=== PATIENT | male | born 1950 | race Caucasian/White ===

== ENCOUNTER 2017-06-26 07:46 | Inpatient (IN) | payer MEDICARE, OTHER ==
[~2017-06-26] VITALS: Ht 170.2 cm; Wt 59.4 kg
[2017-06-26] MEDS ORDERED: HYDROCORTISONE SOD SUCCINATE 100 MG/2 ML VIAL IV ONE (08:15)
[2017-06-26 08:43] LABS: HEMATOCRIT. 25.9 % (42.0-52.0); HEMOGLOBIN. 8.9 g/dL (14.0-18.0); MEAN CORPUSCULAR HEMOGLOBIN 32.9 pg (28.0-32.0); MEAN CORPUSCULAR VOLUME 96.3 fL (80.0-94.0); MEAN PLATELET VOLUME 7.4 fl (7.4-10.4); PLATELET 169 x1000/uL (130-400); PROTHROMBIN TIME 10.6 sec (9.4-11.6); RED BLOOD CELL COUNT 2.69 mill/uL (4.7-6.1); RED CELL DISTRIBUTION WIDTH 15.6 % (11.6-14.6)
[2017-06-26] MEDS ORDERED: FLUDROCORTISONE ACETATE 0.1MG TABLET PO ONE (08:45)
[2017-06-26] MEDS ORDERED: MIDODRINE HCL 5MG TABLET PO ONE (09:00)
[2017-06-26 09:04] LABS: CHLORIDE 110 mEq/L (98-107)
[2017-06-26 09:10] LABS: CREATINE KINASE 34 IU/L (39-308)
[2017-06-26 09:11] LABS: CREATINE KINASE MB FRACTION 0.8 ng/mL (0.5-3.6)
[2017-06-26 09:23] LABS: PLATELET ESTIMATE NORMAL
[2017-06-26 20:30] VITALS: BP 128/79
[2017-06-26 21:00] VITALS: BP 128/77
[2017-06-26] MEDS ORDERED: MIDO5TAB PO (21:53)
[2017-06-26] MEDS ORDERED: DEXA4TAB PO (21:53)
[2017-06-26 22:00] VITALS: BP 123/80
[2017-06-26] MEDS ORDERED: ACETAMINOPHEN 325MG TABLET PO PRN (22:00)
[2017-06-26] MEDS ORDERED: HYDROCODONE/ACETAMINOPHEN 5/325MG TABLET PO PRN (22:00)
[2017-06-26] MEDS ORDERED: SODIUM CHLORIDE 0.9% 500 ML IV ONE (22:00)
[2017-06-27] VITALS (16 sets, daily range): BP systolic 86–138; BP diastolic 50–79
[2017-06-27] MEDS: PANTOPRAZOLE 40MG DR TABLET PO SCH (08:03)
[2017-06-27] MEDS: MIDODRINE HCL 5MG TABLET PO SCH ×3 (08:04→16:41)
[2017-06-27] MEDS ORDERED: DEXAMETHASONE 4MG TABLET PO SCH (09:00)
[2017-06-27 10:13] LABS: BASOPHILS % 0.9 % (0.0-2.0); EOSINOPHILS % 2.7 % (0.0-5.0); HEMATOCRIT. 23.5 % (42.0-52.0); HEMOGLOBIN. 7.9 g/dL (14.0-18.0); LYMPHOCYTES % 16.6 % (20.0-50.0); MEAN CORPUSCULAR HEMOGLOBIN 32.4 pg (28.0-32.0); MEAN CORPUSCULAR VOLUME 96.7 fL (80.0-94.0); MEAN PLATELET VOLUME 8.5 fl (7.4-10.4); MONOCYTES % 14.8 % (2.0-8.0); PLATELET 150 x1000/uL (130-400); RED BLOOD CELL COUNT 2.43 mill/uL (4.7-6.1); RED CELL DISTRIBUTION WIDTH 15.5 % (11.6-14.6)
[2017-06-27 10:28] LABS: CHLORIDE 111 mEq/L (98-107)
[2017-06-27 10:33] LABS: HDL CHOLESTEROL 69 mg/dL (40-59); LDL CHOLESTEROL 78 mg/dL (5-100)
[2017-06-27 13:37] LABS: BASOPHILS % 0.3 % (0.0-2.0); LYMPHOCYTES % 7.2 % (20.0-50.0); MEAN CORPUSCULAR HEMOGLOBIN 32.1 pg (28.0-32.0); MEAN CORPUSCULAR VOLUME 96.7 fL (80.0-94.0); MONOCYTES % 3.2 % (2.0-8.0); NEUTROPHILS % 88.3 % (40.0-76.0); PLATELET 150 x1000/uL (130-400); RED BLOOD CELL COUNT 2.48 mill/uL (4.7-6.1); RED CELL DISTRIBUTION WIDTH 15.6 % (11.6-14.6)
[2017-06-27] MEDS ORDERED: FLUDROCORTISONE ACETATE 0.1MG TABLET PO NR (14:53)
[2017-06-27] MEDS: SODIUM CHLORIDE 0.9% 1,000 ML IV SCH (16:26)
[2017-06-27] MEDS ORDERED: CYCLOPHOSPHAMIDE 50MG PO SCH (18:00)
[2017-06-28] VITALS (13 sets, daily range): BP systolic 69–163; BP diastolic 43–85
[2017-06-28] MEDS: SODIUM CHLORIDE 0.9% 1,000 ML IV SCH ×3 (04:09→23:18)
[2017-06-28 07:15] LABS: HEMATOCRIT 26.5 % (42.0-52.0); HEMOGLOBIN 9.1 g/dL (14.0-18.0); MEAN CORPUSCULAR HEMOGLOBIN 31.6 pg (28.0-32.0); PLATELET 158 x1000/uL (130-400); RED BLOOD CELL COUNT 2.88 mill/uL (4.7-6.1); RED CELL DISTRIBUTION WIDTH 17.6 % (11.6-14.6)
[2017-06-28] MEDS: PANTOPRAZOLE 40MG DR TABLET PO SCH (08:26)
[2017-06-28] MEDS: MIDODRINE HCL 5MG TABLET PO SCH ×3 (08:27→17:37)
[2017-06-28] MEDS ORDERED: FLUDROCORTISONE ACETATE 0.1MG TABLET PO SCH (09:00)
[2017-06-28 11:41] LABS: CLARITY URINE CLEAR (CLEAR); COLOR URINE YELLOW (YELLOW); KETONES URINE NEGATIVE (NEGATIVE); LEUKOCYTE ESTERASE URINE NEGATIVE (NEGATIVE); NITRITE URINE NEGATIVE (NEGATIVE); OCCULT BLOOD URINE NEGATIVE (NEGATIVE); PH URINE 5.5 (4.5-8.0); PROTEIN URINE TRACE (NEGATIVE); SPECIFIC GRAVITY URINE 1.016 (1.005-1.030); UROBILINOGEN URINE 0.2 E.U./dL (0.2-1.0)
[2017-06-28 11:58] LABS: *AMPHETAMINES SCREEN URINE NEGATIVE (NEGATIVE); *BARBITURATES SCREEN URINE NEGATIVE (NEGATIVE); *BENZODIAZEPINES SCREEN URINE NEGATIVE (NEGATIVE); *COCAINE SCREEN URINE NEGATIVE (NEGATIVE); CANNABINOID URINE SCREEN NEGATIVE (NEGATIVE); METHADONE URINE SCREEN NEGATIVE (NEGATIVE); OPIATES URINE SCREEN NEGATIVE (NEGATIVE); PHENCYCLIDINE URINE SCREEN NEGATIVE (NEGATIVE)
[2017-06-28] MEDS: FLUDROCORTISONE ACETATE 0.1MG TABLET PO SCH ×2 (13:03→17:37)
[2017-06-28] MEDS: FAMOTIDINE 20MG TABLET PO SCH (20:27)
[2017-06-29] VITALS (12 sets, daily range): BP systolic 69–155; BP diastolic 43–84
[2017-06-29 07:10] LABS: HEMATOCRIT 25.6 % (42.0-52.0); HEMOGLOBIN 8.8 g/dL (14.0-18.0); MEAN CORPUSCULAR VOLUME 92.9 fL (80.0-94.0); PLATELET 153 x1000/uL (130-400); RED BLOOD CELL COUNT 2.75 mill/uL (4.7-6.1); RED CELL DISTRIBUTION WIDTH 17.9 % (11.6-14.6)
[2017-06-29] MEDS: FLUDROCORTISONE ACETATE 0.1MG TABLET PO SCH ×3 (09:04→17:32)
[2017-06-29] MEDS: MIDODRINE HCL 5MG TABLET PO SCH ×3 (09:04→17:31)
[2017-06-29] MEDS: SODIUM CHLORIDE 0.9% 1,000 ML IV SCH ×2 (09:05→18:23)
[2017-06-29] MEDS ORDERED: SODIUM CHLORIDE 0.9% 1,000 ML IV ONE (11:00)
[2017-06-29] MEDS: FAMOTIDINE 20MG TABLET PO SCH (20:23)
[2017-06-30] VITALS (10 sets, daily range): BP systolic 91–158; BP diastolic 26–88
[2017-06-30] MEDS: SODIUM CHLORIDE 0.9% 1,000 ML IV SCH ×3 (06:26→15:18)
[2017-06-30] MEDS: MIDODRINE HCL 5MG TABLET PO SCH ×3 (10:35→17:00)
[2017-06-30] MEDS: FLUDROCORTISONE ACETATE 0.1MG TABLET PO SCH ×2 (10:56→17:00)
== END 2017-06-30 18:17 | disposition home or self-care (01) | DRG 73 ==
LOC: ER 07:59 → EDBEDREQSVC 08:46 → EDBEDREQTM 08:46 → EDBEDREQ 10:29 → ENRESERV 19:18 → ER 20:00 → 5EST 20:30
PROVIDERS: ADMIT Internal Medicine; ATTEND Internal Medicine
PROC: 30233N1 Transfusion of Nonautologous Red Blood Cells into Peripheral Vein, Percutaneous Approach (ICD-10-PCS; principal; 2017-06-27)
DX: G90.8 Other disorders of autonomic nervous system (principal); I50.33 Acute on chronic diastolic (congestive) heart failure; N17.9 Acute kidney failure, unspecified; C90.00 Multiple myeloma not having achieved remission; E27.40 Unspecified adrenocortical insufficiency; I13.0 Hypertensive heart and chronic kidney disease with heart failure and stage 1 through stage 4 chronic kidney disease, or unspecified chronic kidney disease; W19.XXXA Unspecified fall, initial encounter; E86.0 Dehydration; I95.1 Orthostatic hypotension; N18.9 Chronic kidney disease, unspecified; D72.819 Decreased white blood cell count, unspecified; M46.1 Sacroiliitis, not elsewhere classified; E78.5 Hyperlipidemia, unspecified; D64.9 Anemia, unspecified; Y93.89 Activity, other specified; Y92.89 Other specified places as the place of occurrence of the external cause; Y99.8 Other external cause status; Z88.5 Allergy status to narcotic agent
CPT/HCPCS: 36415; 70450; 71045; 72192; 73700; 80048; 80053; 80061; 80305; 81003; 82533; 82550; 82553; 83735; 83880; 84443; 84484; 85025; 85027; 85610; 85730; 86850; 86900; 86920; 93005; 93306; 93880; 96374; 97162; 99291; J1720; J7030; J7040; J7050; J8540; P9016